=== PATIENT | female | born 1980 | race African-American/Black ===

== ENCOUNTER 2018-07-18 09:55 | Emergency (ER) | payer BC ==
[~2018-07-18] VITALS: Ht 165.1 cm; Wt 100.0 kg
[2018-07-18 09:59] VITALS: Ht 165.1 cm; Wt 100.0 kg
[2018-07-18 10:38] LABS: BASOPHILS 0.5 % (0-2); EOSINOPHILS 5.5 % (0-7); HEMOGLOBIN 13.2 g/dL (12-16); IMMATURE GRANULOCYTES 0.2 % (0-5); LYMPHOCYTES 40.7 % (15-50); MCH 31.6 pg (26.0-34.0); MCHC 33.8 g/dL (31.0-37.0); MCV 93.3 fL (80.0-100.0); MEAN PLATELET VOLUME 9.9 fL (7.4-10.4); NEUTROPHILS 47.1 % (40-80); PLATELET COUNT 202 10x3/uL (130-400); RBC 4.18 10x6/uL (4.00-5.40); RDW 14.1 % (11.5-14.5); WBC 5.5 10x3/uL (4.8-10.8)
[2018-07-18 11:03] LABS: ALBUMIN 3.6 g/dL (3.4-5.0); ANION GAP 15.5 mmol/L (8-16); BILIRUBIN - TOTAL 0.33 mg/dL (0.2-1.3); CALCIUM 8.8 mg/dL (8.5-10.1); CARBON DIOXIDE 23.2 mmol/L (21.0-32.0); POTASSIUM - SERUM 3.7 mmol/L (3.5-5.1); PROTEIN - SERUM 7.6 g/dL (6.4-8.2)
[2018-07-18] MEDS ORDERED: MEDROL DOSE PACK4 MG PO (12:29)
[2018-07-18] MEDS ORDERED: ZPAK PO (12:29)
[2018-07-18 12:57] VITALS: BP 138/84
== END 2018-07-18 12:59 | disposition home or self-care (01) ==
LOC: D.ER 09:55
PROVIDERS: Family Medicine
DX: J06.9 Acute upper respiratory infection, unspecified (principal); J40 Bronchitis, not specified as acute or chronic; R09.89 Other specified symptoms and signs involving the circulatory and respiratory systems; R05 Cough; F17.200 Nicotine dependence, unspecified, uncomplicated